=== PATIENT | female | born 1930 | race American Indian/Alaskan Native ===

== ENCOUNTER 2016-06-04 19:48 | Emergency (ER) | payer MEDICAID ==
[2016-06-04 20:18] VITALS: RESP 16; TEMP 98.6
--- NOTE | 2016-06-04 20:48 | C.PDOC ---
History Of Present Illness 86 y/o F c no history of anemia and not on anticoagulation p/w epistaxis. Patient had 1 episode at 4am and another this evening prior to arrival. She denies trauma, chest pain, dyspnea, palpitations. Bleeding stopped spontaneously and no active bleeding noted. Time Seen by Provider: 06/04/16 20:27 Chief Complaint (Nursing): High Blood Pressure Past Medical History Vital Signs: Last Vital Signs Temp 98.6 F 06/04/16 20:17 Pulse 84 06/04/16 20:17 Resp 16 06/04/16 20:17 BP 201/97 H 06/04/16 20:17 Pulse Ox 100 06/04/16 20:49 - Medical History PMH: HTN Family History: States: No Known Family Hx - Social History Hx Alcohol Use: No Hx Substance Use: No - Immunization History Hx Tetanus Toxoid Vaccination: No Hx Influenza Vaccination: No Hx Pneumococcal Vaccination: No Review Of Systems Except As Marked, All Systems Reviewed And Found Negative. Constitutional: Negative for: Fever Cardiovascular: Negative for: Chest Pain Physical Exam - Physical Exam Additional Physical Exam Comments: Constitutional: No acute distress. Head: Normocephalic. Atraumatic. Eyes: PERRL. ENT: Moist mucous membranes. No active bleeding. No septal hematoma. Neck: Supple. Cardiovascular: Regular rate. Radial pulse 2+ bilaterally. Chest: No tenderness. Respiratory: Clear to auscultation bilaterally. GI: Soft. Nontender. Nondistended. Back: No CVA tenderness. Musculoskeletal: No tenderness or swelling of extremities. Skin: No rash. Neurologic: Alert, no focal deficit. ED Course And Treatment O2 Sat by Pulse Oximetry: 100 Medical Decision Making Medical Decision Making: Patient with HTN, consistent with epistaxis. Otherwise, no tachycardia. No active bleeding. Educated patient and family on management of acute epistaxis. Instructed to return to ER for recurrent episode that does not respond to conservative management for nasal packing. Disposition - Disposition Disposition: HOME/ ROUTINE Disposition Time: 20:47 Condition: STABLE Instructions: Nosebleed (ED) - Clinical Impression Clinical Impression: Epistaxis
[2016-06-04 22:08] LABS: BASO # 0.1 K/uL (0.0-0.2); BASO % 0.5 % (0.0-2.0); EOS # 0.3 K/uL (0.0-0.7); EOS % 2.7 % (0.0-4.0); HEMATOCRIT 35.8 % (34.0-47.0); LYMPH # 2.6 K/uL (1.0-4.3); LYMPH % 25.7 % (20.0-40.0); MEAN CELL VOLUME 92.8 fL (81.0-99.0); MEAN CORPUSCULAR HGB CONC 32.3 g/dL (33.0-37.0); MEAN PLATELET VOLUME 10.7 fL (7.2-11.7); MONO # 0.7 K/uL (0.0-0.8); MONO % 7.3 % (0.0-10.0); NRBC % 0.1 % (0.0-2.0); RED CELL DISTRIBUTION WIDTH 14.3 % (11.5-14.5)
[2016-06-04 22:43] LABS: POTASSIUM 3.9 mmol/L (3.6-5.2)
[2016-06-04 22:45] LABS: ALB/GLOB RATIO 1.4 (1.0-2.1); BILIRUBIN,TOTAL 0.3 mg/dL (0.2-1.3)
[2016-06-04 22:46] LABS: CALCIUM 8.9 mg/dl (8.6-10.4)
[2016-06-04 23:44] VITALS: BP 179/87; PULSE 78; O2SAT 98
== END 2016-06-04 23:43 | disposition home or self-care (01) ==
LOC: C.ER 19:48
DX: R04.0 Epistaxis (principal)